=== PATIENT | male | born 1940 | race Hispanic/Latino ===

== ENCOUNTER → 2017-09-26 | Outpatient (CLI) | payer MEDICARE ==
[~2017-09-26] MED LIST: ASPI-1181 PO; CARV12.511 PO; FURO20TA4 PO; LEVE10006 PO; LISI10TA7 PO; METF10004 PO; POTA10CA44 PO; PRAV40TA3 PO; TYL3B PO
== END | disposition home or self-care (01) ==
LOC: SHCH 10:13
PROVIDERS: ATTEND Internal Medicine Cardiovascular Disease
DX: I50.42 Chronic combined systolic (congestive) and diastolic (congestive) heart failure (principal); Z95.0 Presence of cardiac pacemaker
CPT/HCPCS: 93306

== ENCOUNTER → 2017-10-04 | Outpatient (CLI) | payer MEDICARE | END | disposition home or self-care (01) | LOC: SHCH 08:51 | PROVIDERS: ATTEND Internal Medicine Cardiovascular Disease | DX: I65.22 Occlusion and stenosis of left carotid artery (principal); I73.9 Peripheral vascular disease, unspecified; I50.42 Chronic combined systolic (congestive) and diastolic (congestive) heart failure | CPT/HCPCS: 93925; 93978 ==

== ENCOUNTER 2018-07-10 07:42 | Emergency (ER) | payer MEDICARE ==
[~2018-07-10 07:42] MED LIST changes: +METF-446 PO; -METF10004 PO
[2018-07-10 08:14] LABS: BASOPHILS % (AUTO) 1.7 % (0.0-5.0); EOSINOPHILS % (AUTO) 3.1 % (0.0-8.0); HEMATOCRIT 36.7 % (42-54); MEAN CORPUSCULAR HEMOGLOBIN 33.1 pg (27.0-33.0); MEAN CORPUSCULAR HGB CONC 34.4 g/dL (32.0-36.0); MEAN CORPUSCULAR VOLUME 96.1 fL (79-99); MONOCYTES % (AUTO) 8.5 % (3.0-13.0); NEUTROPHILS % (AUTO) 64.7 % (40.0-77.0); PLATELET COUNT (AUTO) 186 K/uL (130-400); RED BLOOD CELL COUNT(AUTO) 3.82 MIL/uL (4.50-6.20); RED CELL DISTRIBUTION WIDTH 13.9 % (11.0-15.5); WHITE BLOOD COUNT (AUTO) 6.6 K/uL (4.8-10.8)
[2018-07-10 08:22] LABS: CREATININE 1.3 mg/dL (0.5-1.5); POTASSIUM 4.1 mmol/L (3.5-5.1)
[2018-07-10] MEDS ORDERED: FUROSEMIDE 10 MG/ML 4ML VIAL ONE (08:27)
[2018-07-10 08:28] LABS: ALBUMIN 3.8 g/dL (3.5-5.0); BILIRUBIN,TOTAL 0.7 mg/dL (0.2-1.0); TOTAL PROTEIN, SERUM 7.6 g/dL (6.0-8.3)
[2018-07-10] MEDS ORDERED: IOHEXOL-350 75 ML VIAL IV ONE (09:11)
== END 2018-07-10 10:25 | disposition home or self-care (01) ==
LOC: EDH 07:42
DX: I11.0 Hypertensive heart disease with heart failure (principal); I50.21 Acute systolic (congestive) heart failure; E11.9 Type 2 diabetes mellitus without complications; E78.5 Hyperlipidemia, unspecified; Z98.890 Other specified postprocedural states; Z95.0 Presence of cardiac pacemaker; Z87.891 Personal history of nicotine dependence
CPT/HCPCS: 36415; 71045; 71275; 80053; 83880; 84484; 85025; 85378; 93005; 96374; 99285; J1940; Q9967

== ENCOUNTER → 2018-07-23 | Outpatient (CLI) | payer MEDICARE | END | disposition home or self-care (01) | LOC: SHCH 07:54 | PROVIDERS: ATTEND Internal Medicine Cardiovascular Disease | DX: I70.0 Atherosclerosis of aorta (principal); I71.4 Abdominal aortic aneurysm, without rupture | CPT/HCPCS: 93925; 93978 ==

== ENCOUNTER → 2019-04-04 | Outpatient (CLI) | payer MEDICARE | END | disposition home or self-care (01) | LOC: SHCH 11:24 | PROVIDERS: ATTEND Internal Medicine Cardiovascular Disease | DX: I73.9 Peripheral vascular disease, unspecified (principal) | CPT/HCPCS: 93925 ==

== ENCOUNTER → 2019-05-20 | Outpatient (CLI) | payer MEDICARE | END | disposition home or self-care (01) | LOC: SHCH 07:43 | PROVIDERS: ATTEND Internal Medicine Cardiovascular Disease | DX: I70.0 Atherosclerosis of aorta (principal); I73.9 Peripheral vascular disease, unspecified | CPT/HCPCS: 93978 ==

== ENCOUNTER 2019-06-11 07:20 | Inpatient (IN) | payer MEDICARE ==
[~2019-06-11] VITALS: Ht 157.5 cm; Wt 68.7 kg
[2019-06-11] MEDS ORDERED: ASPIRIN 325 MG TABLET ONE (08:02)
[2019-06-11] MEDS ORDERED: NITROGLYCERIN 1GM/1 INCH PACKET TD ONE (08:02)
[2019-06-11 08:03] LABS: BASOPHILS % (AUTO) 0.8 % (0.0-5.0); EOSINOPHILS % (AUTO) 2.5 % (0.0-8.0); HEMATOCRIT 38.7 % (42-54); LYMPHOCYTES % (AUTO) 11.9 % (21.0-51.0); MEAN CORPUSCULAR HEMOGLOBIN 33.9 pg (27.0-33.0); MEAN CORPUSCULAR HGB CONC 33.8 g/dL (32.0-36.0); MEAN CORPUSCULAR VOLUME 100.4 fL (79-99); MONOCYTES % (AUTO) 9.4 % (3.0-13.0); NEUTROPHILS % (AUTO) 75.4 % (40.0-77.0); PLATELET COUNT (AUTO) 185 K/uL (130-400); RED BLOOD CELL COUNT(AUTO) 3.86 MIL/uL (4.50-6.20); RED CELL DISTRIBUTION WIDTH 14.2 % (11.0-15.5); WHITE BLOOD COUNT (AUTO) 7.7 K/uL (4.8-10.8)
[2019-06-11 08:11] LABS: CREATININE 1.3 mg/dL (0.5-1.5); POTASSIUM 3.6 mmol/L (3.5-5.1)
[2019-06-11 08:13] LABS: INR 1.15 (0.85-1.15); PARTIAL THROMBOPLASTIN TIME 29.7 SEC (26.3-35.5)
[2019-06-11 08:15] LABS: ALBUMIN 3.5 g/dL (3.5-5.0); TOTAL PROTEIN, SERUM 7.5 g/dL (6.0-8.3)
[2019-06-11 08:50] LABS: B-TYPE NATRIURETIC PEPTIDE 333 pg/mL (0-100)
[2019-06-11] MEDS ORDERED: FUROSEMIDE 10 MG/ML 2ML VIAL ONE (09:33)
[2019-06-11 09:54] LABS: APPEARANCE,URINE Clear (CLEAR); BILIRUBIN,URINE Negative (NEGATIVE); COLOR,URINE Dark Yellow (YELLOW); GLUCOSE, URINE (UA) Negative (NEGATIVE); KETONES,URINE Negative (NEGATIVE); LEUKOCYTE ESTERASE ,URINE Small (NEGATIVE); NITRATE,URINE Negative (NEGATIVE); OCCULT BLOOD,URINE Negative (NEGATIVE); PH,URINE 6.5 (5.0-8.0); PROTEIN,URINE Trace mg/dL (NEGATIVE)
[2019-06-11] MEDS ORDERED: HYDRALAZINE HCL 20 MG/ML VIAL IV PRN (10:30)
[2019-06-11] MEDS ORDERED: MORPHINE SULFATE 2 MG/ML 1ML SYG IV PRN (10:30)
[2019-06-11] MEDS ORDERED: ACETAMINOPHEN 325 MG TAB PO PRN ×2 (10:30)
[2019-06-11] MEDS: NITROGLYCERIN 1GM/1 INCH PACKET TD SCH ×2 (10:30→18:30)
[2019-06-11] MEDS ORDERED: ONDANSETRON HCL 4 MG/2 ML VIAL IV PRN (10:30)
[2019-06-11 10:33] LABS: BACTERIA,URINE Rare /HPF (None Seen); RBC,URINE None Seen /HPF (0-1)
[2019-06-11 11:11] LABS: HEMOGLOBIN A1C 5.9 % (4.0-6.0)
[2019-06-11 11:26] LABS: CHOLESTEROL 113 mg/dL (<200); HDL CHOLESTEROL 83 mg/dL (29-71); LDL DIRECT 72 mg/dL (0-99); TRIGLYCERIDES 31 mg/dL (30-200)
--- NOTE | 2019-06-11 11:35 | NUR ---
DCP: HOME Sw met with pt who states daughter Salazar Brandon [phone] lives with him and is his provider 3hrs daily. Pt states he needs no DME or Hh services. PCP is Sha Edmonds and Jake is pharm. Pt denies dc needs. Plan is home with daughter Addendum: 06/11/19 at 1137 by ANJELICA COKER SS Amended: Links added.
[2019-06-11 11:44] LABS: CREATINE KINASE, TOTAL 23 U/L (21-232); MYOGLOBIN 55 ng/mL (10-92); TROPONIN I < 0.04 ng/mL (0.00-0.06)
[2019-06-11] MEDS: FUROSEMIDE 10 MG/ML 2ML VIAL IV SCH ×2 (14:00→22:11)
[2019-06-11] MEDS ORDERED: FUROSEMIDE 10 MG/ML 4ML VIAL ONE (16:36)
[2019-06-11] MEDS ORDERED: IRON FERROUS PO (16:43)
[2019-06-11] MEDS ORDERED: FOLI0.8T2 PO (16:43)
[2019-06-11] MEDS ORDERED: LINA5TAB PO (16:43)
[2019-06-11 19:21] LABS: CREATINE KINASE, TOTAL 21 U/L (21-232); MYOGLOBIN 51 ng/mL (10-92); TROPONIN I < 0.04 ng/mL (0.00-0.06)
[2019-06-11 20:05] VITALS: BP 154/75
--- NOTE | 2019-06-11 20:31 | NUR ---
ADMISSION ASSESSMENT PATIENT WAS TRANSFERRED FROM ER BY STRETCHER. PATIENT IS ALERT AND ORIENTED X4. PATIENT TRANSFERRED TO BED WITH NO ISSUES. NO COMPLAINTS OF CHEST PAIN AT THIS TIME. NO SHORTNESS OF BREATH. NO SIGNS OF DISTRESS. FAMILY IS AT BEDSIDE WITH PATIENT. CALL LIGHT AND BEDSIDE TABLE WITHIN REACH. NO COMPLAINTS, QUESTIONS, OR NEEDS AT THIS TIME. PATIENT REINFORCED TO CALL FOR ANY NEEDS.
[2019-06-11] MEDS: LEVETIRACETAM 500 MG TABLET PO SCH (20:59)
[2019-06-11] MEDS: CARVEDILOL 12.5 MG TABLET PO SCH (20:59)
[2019-06-11] MEDS: FAMOTIDINE/PF 20 MG/2 ML VIAL IV SCH (20:59)
[2019-06-11] MEDS: ATORVASTATIN CALCIUM 20 MG TABLET PO SCH (20:59)
[2019-06-11] MEDS ORDERED: METOPROLOL TARTRATE 25 MG TAB PO SCH (21:00)
[2019-06-11] MEDS ORDERED: FAMOTIDINE/PF 20 MG/2 ML VIAL IV SCH (21:00)
[2019-06-11 23:41] VITALS: BP 127/67
--- NOTE | 2019-06-12 02:00 | NUR ---
FALL LOUD NOISE WAS HEARD FROM PATIENTS ROOM. PATIENT WAS FOUND ON FLOOR WITH FAMILY MEMBER ATTEMPTING TO HELP UP. PATIENT STATES HE WAS ATTEMPTING TO STAND AT THE SIDE OF THE BED TO USE THE URINAL. PATIENT STATES HE GOT UP TOO FAST DUE TO URGENCY TO VOID SINCE ON DIURETICS AND GOT DIZZY. ATTEMPTED TO HOLD ON TO BEDSIDE TABLE AND IT SLID CAUSING PATIENT TO LOOSE BALANCE AND FALL. PATIENT STATES HIS LOWER BACK IS SORE FROM WHERE HE HIS IT AGAINST THE BED AND RIGHT FOOT THAT HE HIT WHEN TRYING TO REGAIN HIS BALANCE. PATIENTS VITAL SIGNS ARE STABLE. LOC A/O X3. NO NEURO CHANGES. NO COMPLAINTS OF PAIN AT THIS TIME. PATIENT STATES HE IS SORE BUT NO PAIN AT REST. PATIENT WAS EVALUATED BY [employer]IST WILL HAVE XRAYS ORDERED. WILL CONTINUE TO MONITOR. PATIENTS CALL LIGHT WITHIN REACH BEDSIDE TABLE WITHIN REACH. BED ALARM ON. PATIENT REINFORCED TO CALL FOR ANY ASSISTANCE TO USE THE BATHROOM OR STAND. ALTHOUGH PATIENT IS FULLY AMBULATORY EXPLAINED TO PATIENT HOW DIURETIC CAN CAUSE DIZZINESS AT PUTS HIM AT RISK FOR FALLS. PATIENTS DOOR IS OPEN. PATIENT ROOM IS FRONT OF NURSES STATION WILL CONTINUE TO MONITOR. PRN MEDS AVAILABLE FOR PAIN BUT PATIENT REFUSES AT THIS TIME.
[2019-06-12] MEDS: NITROGLYCERIN 1GM/1 INCH PACKET TD SCH ×3 (02:30→17:59)
[2019-06-12] MEDS ORDERED: TRAMADOL HCL 50 MG TABLET PO PRN ×2 (03:15)
[2019-06-12 03:50] LABS: CREATINE KINASE, TOTAL 43 U/L (21-232); MYOGLOBIN 92 ng/mL (10-92); TROPONIN I < 0.04 ng/mL (0.00-0.06)
--- NOTE | 2019-06-12 04:00 | NUR ---
ASSESSMENT PATIENT IS RESTING IN BED. AROUSABLE TO VOICE. NO COMPLAINTS OF PAIN AT THIS TIME. NO SIGNS OF DISTRESS. NO SHORTNESS OF BREATH. DENIES CHEST PAIN AT THIS TIME. PATIENTS CALL LIGHT WITHIN REACH. FAMILY AT BEDSIDE. REINFORCED PATIENT TO CALL FOR ANY NEEDS. BED ALARM IS ON. NO QUESTIONS, CONCERNS, OR NEEDS AT THIS TIME. URINAL AT BEDSIDE.
[2019-06-12 04:09] VITALS: BP 147/69
[2019-06-12] MEDS: FUROSEMIDE 10 MG/ML 2ML VIAL IV SCH ×3 (06:32→20:55)
[2019-06-12 07:56] VITALS: BP 124/66
[2019-06-12] MEDS: ASPIRIN 325 MG TABLET PO SCH (08:27)
[2019-06-12] MEDS: FOLIC ACID/VITAMIN B COMP W-C 1 MG CAP/TAB PO SCH (08:27)
[2019-06-12] MEDS: FERROUS SULFATE 325 MG TABLET.DR PO SCH (08:28)
[2019-06-12] MEDS: LISINOPRIL 10 MG TABLET PO SCH (08:28)
[2019-06-12] MEDS: CARVEDILOL 12.5 MG TABLET PO SCH ×2 (08:28→20:54)
[2019-06-12] MEDS: LEVETIRACETAM 500 MG TABLET PO SCH ×2 (08:28→20:54)
[2019-06-12] MEDS: FAMOTIDINE/PF 20 MG/2 ML VIAL IV SCH ×2 (08:29→20:54)
[2019-06-12] MEDS: ENOXAPARIN SODIUM 40 MG/0.4 ML SYRINGE SQ SCH (08:30)
[2019-06-12] MEDS: LINAGLIPTIN 5 MG TABLET PO SCH (08:33)
--- NOTE | 2019-06-12 10:30 | NUR ---
consultation Spoke to Amelie, from Dr Barba's office; she will let Dr Barba know of consultation as he is currently doing surgery
[2019-06-12 11:12] VITALS: BP 121/71
[2019-06-12] MEDS ORDERED: IOHEXOL-350 75 ML VIAL IV ONE (13:42)
[2019-06-12] MEDS ORDERED: POTASSIUM CHLORIDE 20MEQ/100ML 100 ML IV PRN (15:00)
[2019-06-12] MEDS ORDERED: POTASSIUM CHLORIDE 10% ELIXIR 20 MEQ/15 ML UDCUP PO PRN (15:00)
[2019-06-12] MEDS ORDERED: LIDOCAINE HCL-MPF 1% 2ML VIAL IV PRN (15:00)
[2019-06-12 16:10] VITALS: BP 101/60
[2019-06-12] MEDS: POTASSIUM CHLORIDE 20 MEQ ERTAB PO PRN (18:00)
[2019-06-12 19:19] VITALS: BP 131/50
[2019-06-12] MEDS: ATORVASTATIN CALCIUM 20 MG TABLET PO SCH (20:54)
[2019-06-12 23:35] VITALS: BP 114/69
[2019-06-13] VITALS (8 sets, daily range): BP systolic 87–132; BP diastolic 48–85
[2019-06-13] MEDS: NITROGLYCERIN 1GM/1 INCH PACKET TD SCH ×3 (02:18→17:47)
[2019-06-13 04:46] LABS: BASOPHILS % (AUTO) 1.4 % (0.0-5.0); EOSINOPHILS % (AUTO) 3.5 % (0.0-8.0); LYMPHOCYTES % (AUTO) 14.8 % (21.0-51.0); MEAN CORPUSCULAR HEMOGLOBIN 34.2 pg (27.0-33.0); MEAN CORPUSCULAR HGB CONC 34.8 g/dL (32.0-36.0); MEAN CORPUSCULAR VOLUME 98.2 fL (79-99); MONOCYTES % (AUTO) 10.1 % (3.0-13.0); NEUTROPHILS % (AUTO) 70.2 % (40.0-77.0); PLATELET COUNT (AUTO) 212 K/uL (130-400); RED BLOOD CELL COUNT(AUTO) 4.07 MIL/uL (4.50-6.20); RED CELL DISTRIBUTION WIDTH 14.1 % (11.0-15.5); WHITE BLOOD COUNT (AUTO) 8.4 K/uL (4.8-10.8)
[2019-06-13 04:57] LABS: ALBUMIN 3.5 g/dL (3.5-5.0); CREATININE 1.6 mg/dL (0.5-1.5); POTASSIUM 3.3 mmol/L (3.5-5.1)
[2019-06-13 05:18] LABS: BILIRUBIN,TOTAL 2.1 mg/dL (0.2-1.0); TOTAL PROTEIN, SERUM 7.9 g/dL (6.0-8.3)
[2019-06-13] MEDS: POTASSIUM CHLORIDE 20 MEQ ERTAB PO PRN ×3 (06:03→14:45)
[2019-06-13] MEDS: FAMOTIDINE/PF 20 MG/2 ML VIAL IV SCH ×2 (08:33→20:36)
[2019-06-13] MEDS: ASPIRIN 325 MG TABLET PO SCH (08:34)
[2019-06-13] MEDS: FOLIC ACID/VITAMIN B COMP W-C 1 MG CAP/TAB PO SCH (08:34)
[2019-06-13] MEDS: LINAGLIPTIN 5 MG TABLET PO SCH (08:34)
[2019-06-13] MEDS: LEVETIRACETAM 500 MG TABLET PO SCH ×2 (08:34→20:37)
[2019-06-13] MEDS: LISINOPRIL 10 MG TABLET PO SCH (08:34)
[2019-06-13] MEDS: ENOXAPARIN SODIUM 40 MG/0.4 ML SYRINGE SQ SCH (08:35)
[2019-06-13] MEDS: CARVEDILOL 12.5 MG TABLET PO SCH ×2 (08:35→20:38)
[2019-06-13] MEDS: FERROUS SULFATE 325 MG TABLET.DR PO SCH (08:35)
--- NOTE | 2019-06-13 16:00 | NUR ---
PATIENT MOVED PATIENT MOVED TO ROOM 221 AT THIS TIME AND REPORT GIVEN TO TOMER FELTON; FAMILY AT BEDSIDE
--- NOTE | 2019-06-13 16:00 | NUR ---
TRANSFER FROM ROOM 216 PT AMBULATING FROM BED TO WHEELCHAIR AND TRANSFERRED TO ROOM 221 AND AMBULATING FROM WHEELCHAIR TO BED, GAIT SLOW BUT STEADY WITH STAND BY ASSIST, PT DENIES PAIN, DIZZINESS OR LIGHTHEADEDNESS. PT RESTING COMFORTABLY, CALL LIGHT WITHIN REACH, FAMILY AT BEDSIDE.
[2019-06-13] MEDS ORDERED: RIVA20TA PO (16:25)
[2019-06-13] MEDS: ATORVASTATIN CALCIUM 20 MG TABLET PO SCH (20:36)
[2019-06-14] MEDS: NITROGLYCERIN 1GM/1 INCH PACKET TD SCH ×2 (02:57→10:39)
[2019-06-14 03:00] VITALS: BP 102/47
[2019-06-14 03:47] LABS: BASOPHILS % (AUTO) 1.4 % (0.0-5.0); EOSINOPHILS % (AUTO) 4.8 % (0.0-8.0); HEMATOCRIT 37.6 % (42-54); LYMPHOCYTES % (AUTO) 18.4 % (21.0-51.0); MEAN CORPUSCULAR HEMOGLOBIN 34.4 pg (27.0-33.0); MEAN CORPUSCULAR HGB CONC 34.7 g/dL (32.0-36.0); MEAN CORPUSCULAR VOLUME 99.1 fL (79-99); MONOCYTES % (AUTO) 10.8 % (3.0-13.0); NEUTROPHILS % (AUTO) 64.6 % (40.0-77.0); PLATELET COUNT (AUTO) 186 K/uL (130-400); RED BLOOD CELL COUNT(AUTO) 3.79 MIL/uL (4.50-6.20); RED CELL DISTRIBUTION WIDTH 14.1 % (11.0-15.5); WHITE BLOOD COUNT (AUTO) 7.3 K/uL (4.8-10.8)
[2019-06-14 03:58] LABS: ALBUMIN 3.3 g/dL (3.5-5.0); BILIRUBIN,TOTAL 1.5 mg/dL (0.2-1.0); CREATININE 1.8 mg/dL (0.5-1.5); POTASSIUM 3.5 mmol/L (3.5-5.1); TOTAL PROTEIN, SERUM 7.4 g/dL (6.0-8.3)
[2019-06-14 07:00] VITALS: BP 118/64
[2019-06-14] MEDS: FOLIC ACID/VITAMIN B COMP W-C 1 MG CAP/TAB PO SCH (09:39)
[2019-06-14] MEDS: LINAGLIPTIN 5 MG TABLET PO SCH (09:39)
[2019-06-14] MEDS: ASPIRIN 325 MG TABLET PO SCH (09:39)
[2019-06-14] MEDS: FAMOTIDINE/PF 20 MG/2 ML VIAL IV SCH (09:39)
[2019-06-14] MEDS: LISINOPRIL 10 MG TABLET PO SCH (09:40)
[2019-06-14] MEDS: FERROUS SULFATE 325 MG TABLET.DR PO SCH (09:40)
[2019-06-14] MEDS: LEVETIRACETAM 500 MG TABLET PO SCH (09:40)
[2019-06-14] MEDS: ENOXAPARIN SODIUM 40 MG/0.4 ML SYRINGE SQ SCH (09:41)
[2019-06-14] MEDS: CARVEDILOL 12.5 MG TABLET PO SCH (09:41)
[2019-06-14 11:00] VITALS: BP 109/61
== END 2019-06-14 15:00 | disposition home or self-care (01) | DRG 291 ==
LOC: EDH 07:20 → OBSVTOIN 10:25 → EDHIP 10:25 → 2CH 19:57 → 2DH 06-13 15:48
PROVIDERS: ADMIT Internal Medicine; ATTEND Internal Medicine
DX: I11.0 Hypertensive heart disease with heart failure (principal); J96.01 Acute respiratory failure with hypoxia; I50.21 Acute systolic (congestive) heart failure; F10.239 Alcohol dependence with withdrawal, unspecified; M48.54XA Collapsed vertebra, not elsewhere classified, thoracic region, initial encounter for fracture; E11.9 Type 2 diabetes mellitus without complications; E78.5 Hyperlipidemia, unspecified; I25.10 Atherosclerotic heart disease of native coronary artery without angina pectoris; G40.909 Epilepsy, unspecified, not intractable, without status epilepticus; I34.0 Nonrheumatic mitral (valve) insufficiency; G89.29 Other chronic pain; E87.6 Hypokalemia; Z82.49 Family history of ischemic heart disease and other diseases of the circulatory system; Z95.1 Presence of aortocoronary bypass graft; Z79.899 Other long term (current) drug therapy; Z79.82 Long term (current) use of aspirin; Z95.0 Presence of cardiac pacemaker; W18.39XA Other fall on same level, initial encounter; Y93.89 Activity, other specified; Y92.238 Other place in hospital as the place of occurrence of the external cause; Y99.8 Other external cause status
CPT/HCPCS: 36415; 71045; 72100; 72133; 73620; 80053; 80061; 81001; 82550; 83036; 83874; 83880; 84156; 84166; 84484; 85025; 85610; 85730; 86325; 86334; 93005; 93306; 99291; G0378; J1650; J1940; J3490; Q9967

== ENCOUNTER 2019-11-05 11:59 | Emergency (ER) | payer MEDICARE ==
[~2019-11-05 11:59] MED LIST changes: +FOLI0.8T2 PO; +IRON FERROUS PO; +LINA5TAB PO; -METF-446 PO; -POTA10CA44 PO; +RIVA20TA PO
[2019-11-05] MEDS ORDERED: OXYMETAZOLINE HCL SPRAY 15 ML BOTTLE ONE (12:10)
== END 2019-11-05 13:00 | disposition home or self-care (01) ==
LOC: EDH 11:59
DX: R04.0 Epistaxis (principal); I25.10 Atherosclerotic heart disease of native coronary artery without angina pectoris; E11.9 Type 2 diabetes mellitus without complications; E78.5 Hyperlipidemia, unspecified; I10 Essential (primary) hypertension; Z87.891 Personal history of nicotine dependence
CPT/HCPCS: 30901; 99281

== ENCOUNTER 2020-02-15 18:49 | Emergency (ER) | payer MEDICARE ==
[~2020-02-15 18:49] MED LIST changes: -ASPI-1181 PO; +ASPI-1443 PO
[2020-02-15 19:16] LABS: BASOPHILS % (AUTO) 0.6 % (0.0-5.0); EOSINOPHILS % (AUTO) 2.5 % (0.0-8.0); HEMATOCRIT 38.2 % (42-54); LYMPHOCYTES % (AUTO) 14.6 % (21.0-51.0); MEAN CORPUSCULAR HEMOGLOBIN 31.8 pg (27.0-33.0); MEAN CORPUSCULAR HGB CONC 32.7 g/dL (32.0-36.0); MEAN CORPUSCULAR VOLUME 97.2 fL (79-99); PLATELET COUNT (AUTO) 164 K/uL (130-400); RED BLOOD CELL COUNT(AUTO) 3.93 MIL/uL (4.50-6.20); RED CELL DISTRIBUTION WIDTH 13.4 % (11.0-15.5); WHITE BLOOD COUNT (AUTO) 6.5 K/uL (4.8-10.8)
[2020-02-15] MEDS ORDERED: ASPIRIN 325 MG TABLET ONE (19:18)
[2020-02-15 19:25] LABS: CREATININE 1.6 mg/dL (0.5-1.5); POTASSIUM 4.6 mmol/L (3.5-5.1)
[2020-02-15 19:29] LABS: ALBUMIN 3.7 g/dL (3.5-5.0); BILIRUBIN,TOTAL 1.4 mg/dL (0.2-1.0); TOTAL PROTEIN, SERUM 7.8 g/dL (6.0-8.3)
[2020-02-15 19:41] LABS: B-TYPE NATRIURETIC PEPTIDE 276 pg/mL (0-100)
[2020-02-15 19:53] LABS: INR 1.14 (0.85-1.15); PARTIAL THROMBOPLASTIN TIME 28.2 SEC (26.3-35.5); PROTHROMBIN TIME 12.2 SEC (9.6-11.6)
[2020-02-15] MEDS ORDERED: IOHEXOL-350 75 ML VIAL IV ONE (21:21)
== END 2020-02-15 23:18 | disposition home or self-care (01) ==
LOC: EDH 18:49
DX: R07.89 Other chest pain (principal); R06.02 Shortness of breath; I11.0 Hypertensive heart disease with heart failure; I50.9 Heart failure, unspecified; I25.10 Atherosclerotic heart disease of native coronary artery without angina pectoris; E11.9 Type 2 diabetes mellitus without complications; Z95.0 Presence of cardiac pacemaker; E78.5 Hyperlipidemia, unspecified; Z86.718 Personal history of other venous thrombosis and embolism
CPT/HCPCS: 36415; 71045; 71275; 80053; 82550; 83880; 84484 ×2; 85025; 85610; 85730; 93005 ×2; 99285; Q9967

== ENCOUNTER → 2020-10-01 | Outpatient (CLI) | payer MEDICARE | END | disposition home or self-care (01) | LOC: SHCH 08:30 | PROVIDERS: ATTEND Internal Medicine Cardiovascular Disease | DX: I20.9 Angina pectoris, unspecified (principal); R07.9 Chest pain, unspecified; R06.09 Other forms of dyspnea | CPT/HCPCS: 93306; 93356 ==

== ENCOUNTER 2020-12-01 12:14 | Inpatient (IN) | payer MEDICARE ==
[~2020-12-01] VITALS: Ht 160 cm; Wt 71.8 kg
[~2020-12-01 12:14] MED LIST changes: +LISI10TA24 PO; -LISI10TA7 PO
[2020-12-01 12:47] LABS: EOSINOPHILS % (AUTO) 2.5 % (0.0-8.0); HEMATOCRIT 38.8 % (42-54); LYMPHOCYTES % (AUTO) 12.9 % (21.0-51.0); MEAN CORPUSCULAR HEMOGLOBIN 31.5 pg (27.0-33.0); MEAN CORPUSCULAR HGB CONC 33.5 g/dL (32.0-36.0); MEAN CORPUSCULAR VOLUME 93.9 fL (79-99); MONOCYTES % (AUTO) 8.4 % (3.0-13.0); NEUTROPHILS % (AUTO) 74.8 % (40.0-77.0); PLATELET COUNT (AUTO) 181 K/uL (130-400); RED BLOOD CELL COUNT(AUTO) 4.13 MIL/uL (4.50-6.20); RED CELL DISTRIBUTION WIDTH 14.1 % (11.0-15.5); WHITE BLOOD COUNT (AUTO) 7.3 K/uL (4.8-10.8)
[2020-12-01 13:05] LABS: ALBUMIN 3.7 g/dL (3.5-5.0); BILIRUBIN,TOTAL 1.1 mg/dL (0.2-1.0); CREATININE 1.3 mg/dL (0.5-1.5); POTASSIUM 4.1 mmol/L (3.5-5.1)
[2020-12-01 14:46] LABS: APPEARANCE,URINE Clear (CLEAR); BILIRUBIN,URINE Negative (NEGATIVE); COLOR,URINE Yellow (YELLOW); GLUCOSE, URINE (UA) TRACE mg/dL (NEGATIVE); KETONES,URINE Negative (NEGATIVE); LEUKOCYTE ESTERASE ,URINE Small (NEGATIVE); NITRATE,URINE Negative (NEGATIVE); OCCULT BLOOD,URINE Negative (NEGATIVE); PROTEIN,URINE Trace mg/dL (NEGATIVE)
[2020-12-01 15:08] LABS: MUCUS,URINE Rare LPF (None Seen)
[2020-12-01 15:10] LABS: BACTERIA,URINE Rare /HPF (None Seen); RBC,URINE 0-1 /HPF (0-1)
[2020-12-01] MEDS ORDERED: AZITHROMYCIN 250 MG TABLET PO ONE (16:30)
[2020-12-01] MEDS ORDERED: CEFTRIAXONE 1G VIAL ONE (16:30)
[2020-12-01] MEDS ORDERED: 0.9%NACL 50ML 50 ML IV ONE (16:32)
[2020-12-01] MEDS: AZITHROMYCIN 500MG+NS 250ML 250 ML IV SCH (17:00)
[2020-12-01] MEDS ORDERED: ACETAMINOPHEN 325 MG TAB PO PRN ×2 (17:00)
[2020-12-01] MEDS ORDERED: ONDANSETRON 4MG INJ IV PRN (17:00)
[2020-12-01] MEDS ORDERED: LACTULOSE 20 GM/30 ML UDCUP PO PRN (17:00)
[2020-12-01] MEDS: CEFTRIAXONE 1G VIAL IV SCH (17:00)
[2020-12-01 17:16] LABS: INR 1.08 (0.85-1.15); PROTHROMBIN TIME 11.7 SEC (9.6-11.6)
[2020-12-01 17:17] LABS: PARTIAL THROMBOPLASTIN TIME 26.8 SEC (26.3-35.5)
[2020-12-01] MEDS ORDERED: IPRATROPIUM/ALBUTEROL SULFATE 3 ML SOLUTION IH ONE (18:17)
[2020-12-01] MEDS: IPRATROPIUM/ALBUTEROL SULFATE 3 ML SOLUTION IH SCH (18:21)
[2020-12-02] MEDS ORDERED: IPRATROPIUM/ALBUTEROL SULFATE 3 ML SOLUTION IH ONE ×3 (00:46→11:01)
[2020-12-02] MEDS: IPRATROPIUM/ALBUTEROL SULFATE 3 ML SOLUTION IH SCH ×4 (00:51→18:33)
[2020-12-02 05:01] LABS: BASOPHILS % (AUTO) 0.8 % (0.0-5.0); EOSINOPHILS % (AUTO) 0.5 % (0.0-8.0); HEMATOCRIT 40.2 % (42-54); LYMPHOCYTES % (AUTO) 9.4 % (21.0-51.0); MEAN CORPUSCULAR HEMOGLOBIN 31.2 pg (27.0-33.0); MEAN CORPUSCULAR HGB CONC 33.3 g/dL (32.0-36.0); MEAN CORPUSCULAR VOLUME 93.7 fL (79-99); MONOCYTES % (AUTO) 9.3 % (3.0-13.0); NEUTROPHILS % (AUTO) 79.6 % (40.0-77.0); PLATELET COUNT (AUTO) 190 K/uL (130-400); RED BLOOD CELL COUNT(AUTO) 4.29 MIL/uL (4.50-6.20); RED CELL DISTRIBUTION WIDTH 14.3 % (11.0-15.5); WHITE BLOOD COUNT (AUTO) 11.1 K/uL (4.8-10.8)
[2020-12-02 05:15] LABS: CREATININE 1.5 mg/dL (0.5-1.5); POTASSIUM 4.6 mmol/L (3.5-5.1)
[2020-12-02] MEDS ORDERED: BENZONATATE 100 MG CAPSULE PO ONE ×2 (06:11→17:27)
[2020-12-02] MEDS ORDERED: ACETAMINOPHEN 325 MG TAB ONE (06:22)
[2020-12-02] MEDS ORDERED: LEVETIRACETAM 500 MG TABLET PO ONE (10:34)
[2020-12-02] MEDS: LEVETIRACETAM 500 MG TABLET PO SCH (10:45)
[2020-12-02] MEDS ORDERED: CARVEDILOL 12.5 MG TABLET PO ONE (13:40)
[2020-12-02] MEDS ORDERED: FUROSEMIDE 20MG VIAL ONE (13:41)
[2020-12-02] MEDS: CARVEDILOL 12.5 MG TABLET PO SCH (14:00)
[2020-12-02] MEDS ORDERED: AZITHROMYCIN 500MG+NS 250ML 250 ML IV ONE (16:53)
[2020-12-02] MEDS ORDERED: CEFTRIAXONE 1G VIAL ONE (16:53)
[2020-12-02] MEDS: CEFTRIAXONE 1G VIAL IV SCH (17:00)
[2020-12-02] MEDS: AZITHROMYCIN 500MG+NS 250ML 250 ML IV SCH (17:00)
[2020-12-02 20:11] VITALS: BP 131/70
[2020-12-02] MEDS: INSULIN HUMULIN R 100 UNIT/ML 3ML SQ SCH (21:00)
[2020-12-02] MEDS: FAMOTIDINE 20MG TAB PO SCH (21:36)
[2020-12-02] MEDS ORDERED: FERR325T22 PO (22:12)
[2020-12-03] VITALS (7 sets, daily range): BP systolic 107–146; BP diastolic 49–81
[2020-12-03] MEDS: IPRATROPIUM/ALBUTEROL SULFATE 3 ML SOLUTION IH SCH ×4 (00:11→18:44)
[2020-12-03] MEDS: FUROSEMIDE 20MG VIAL IV SCH ×2 (00:40→12:16)
[2020-12-03 05:22] LABS: BASOPHILS % (AUTO) 0.9 % (0.0-5.0); EOSINOPHILS % (AUTO) 1.4 % (0.0-8.0); HEMATOCRIT 38.4 % (42-54); LYMPHOCYTES % (AUTO) 13.5 % (21.0-51.0); MEAN CORPUSCULAR HEMOGLOBIN 32.2 pg (27.0-33.0); MEAN CORPUSCULAR HGB CONC 34.4 g/dL (32.0-36.0); MEAN CORPUSCULAR VOLUME 93.7 fL (79-99); MONOCYTES % (AUTO) 11.7 % (3.0-13.0); NEUTROPHILS % (AUTO) 72.1 % (40.0-77.0); PLATELET COUNT (AUTO) 178 K/uL (130-400); RED CELL DISTRIBUTION WIDTH 14.3 % (11.0-15.5); WHITE BLOOD COUNT (AUTO) 9.9 K/uL (4.8-10.8)
[2020-12-03 05:35] LABS: CREATININE 1.9 mg/dL (0.5-1.5); MAGNESIUM 2.2 mg/dL (1.80-2.40); POTASSIUM 3.8 mmol/L (3.5-5.1)
[2020-12-03] MEDS: INSULIN HUMULIN R 100 UNIT/ML 3ML SQ SCH ×4 (06:35→20:13)
[2020-12-03] MEDS: LEVETIRACETAM 500 MG TABLET PO SCH ×3 (09:53→20:12)
[2020-12-03] MEDS: Vitamin B Complex/Vit C/Folic Acid PO SCH (10:00)
[2020-12-03] MEDS: FERROUS SULFATE 325 MG TABLET.DR PO SCH (10:00)
[2020-12-03] MEDS: RIVAROXABAN 20 MG TABLET PO SCH (10:00)
[2020-12-03] MEDS: CARVEDILOL 12.5 MG TABLET PO SCH ×3 (10:02→20:12)
[2020-12-03] MEDS: CEFTRIAXONE 1G VIAL IV SCH (17:10)
[2020-12-03] MEDS: AZITHROMYCIN 500MG+NS 250ML 250 ML IV SCH (17:10)
[2020-12-03] MEDS: FAMOTIDINE 20MG TAB PO SCH (20:11)
[2020-12-03] MEDS ORDERED: ATORVASTATIN 10 MG TABLET PO SCH (21:00)
[2020-12-04] MEDS: FUROSEMIDE 20MG VIAL IV SCH ×2 (00:10→12:13)
[2020-12-04] MEDS: IPRATROPIUM/ALBUTEROL SULFATE 3 ML SOLUTION IH SCH ×3 (00:27→11:32)
[2020-12-04 03:00] VITALS: BP 97/54
[2020-12-04 04:44] LABS: HEMATOCRIT 39.3 % (42-54); LYMPHOCYTES % (AUTO) 14.8 % (21.0-51.0); MEAN CORPUSCULAR HEMOGLOBIN 31.3 pg (27.0-33.0); MEAN CORPUSCULAR HGB CONC 33.3 g/dL (32.0-36.0); MEAN CORPUSCULAR VOLUME 93.8 fL (79-99); MONOCYTES % (AUTO) 11.4 % (3.0-13.0); NEUTROPHILS % (AUTO) 69.4 % (40.0-77.0); PLATELET COUNT (AUTO) 180 K/uL (130-400); RED BLOOD CELL COUNT(AUTO) 4.19 MIL/uL (4.50-6.20); WHITE BLOOD COUNT (AUTO) 8.2 K/uL (4.8-10.8)
[2020-12-04 04:59] LABS: CREATININE 1.8 mg/dL (0.5-1.5); POTASSIUM 3.5 mmol/L (3.5-5.1)
[2020-12-04] MEDS: INSULIN HUMULIN R 100 UNIT/ML 3ML SQ SCH ×3 (05:48→15:52)
[2020-12-04] MEDS: CARVEDILOL 12.5 MG TABLET PO SCH ×2 (07:46→08:39)
[2020-12-04] MEDS: LEVETIRACETAM 500 MG TABLET PO SCH ×2 (07:46→08:39)
[2020-12-04 07:48] VITALS: BP 143/68
[2020-12-04] MEDS: Vitamin B Complex/Vit C/Folic Acid PO SCH (08:39)
[2020-12-04] MEDS: RIVAROXABAN 20 MG TABLET PO SCH (08:39)
[2020-12-04] MEDS: FERROUS SULFATE 325 MG TABLET.DR PO SCH (08:39)
[2020-12-04] MEDS ORDERED: AZITHROMYCIN 500MG+NS 250ML 250 ML IV SCH (09:00)
[2020-12-04] MEDS ORDERED: CEFTRIAXONE 1G VIAL IV SCH (09:00)
[2020-12-04 11:44] VITALS: BP 121/64
[2020-12-04] MEDS ORDERED: AZIT250T9 PO (13:44)
[2020-12-04] MEDS ORDERED: CEFD300C3 PO (13:44)
[2020-12-04] MEDS ORDERED: AZIT500T4 PO (13:44)
[2020-12-04] MEDS ORDERED: CEFDINIR 250MG/5ML 60ML BOTTLE PO SCH (13:45)
[2020-12-04] MEDS ORDERED: AZITHROMYCIN 250 MG TABLET PO SCH (13:45)
[2020-12-04] MEDS ORDERED: COMPOUND PO REF 1 EA BTL MISC PRN (15:00)
== END 2020-12-04 16:20 | disposition home or self-care (01) | DRG 291 ==
LOC: EDH 12:14 → EDHIP 16:48 → 4DH 12-02 19:40
PROVIDERS: ADMIT Family Medicine; ATTEND Family Medicine
DX: I11.0 Hypertensive heart disease with heart failure (principal); J18.9 Pneumonia, unspecified organism; I50.41 Acute combined systolic (congestive) and diastolic (congestive) heart failure; E11.9 Type 2 diabetes mellitus without complications; E78.5 Hyperlipidemia, unspecified; G40.909 Epilepsy, unspecified, not intractable, without status epilepticus; I25.10 Atherosclerotic heart disease of native coronary artery without angina pectoris; Z82.49 Family history of ischemic heart disease and other diseases of the circulatory system; Z83.3 Family history of diabetes mellitus; Z86.718 Personal history of other venous thrombosis and embolism; Z95.0 Presence of cardiac pacemaker; Z95.1 Presence of aortocoronary bypass graft; Z20.822 Contact with and (suspected) exposure to COVID-19
CPT/HCPCS: 36415; 71045; 80048; 80053; 81001; 82550; 82948; 83605; 83690; 83735; 83880; 84145; 84484; 85025; 85378; 85610; 85730; 86738; 87040; 87426; 87804; 87880; 93005; 94640; 94664; G0378; J0456; J0696; J1815; J1940; U0003

== ENCOUNTER 2022-02-17 17:00 | Emergency (ER) | payer MEDICARE ==
[~2022-02-17] VITALS: Ht 160 cm; Wt 77.1 kg
[~2022-02-17 17:00] MED LIST changes: -ASPI-1443 PO; +AZIT250T9 PO; +AZIT500T4 PO; +CEFD300C3 PO; +FERR325T22 PO; -IRON FERROUS PO; -LISI10TA24 PO; -TYL3B PO
[2022-02-17 17:43] LABS: APPEARANCE,URINE CLEAR (CLEAR); BASOPHILS % (AUTO) 0.3 % (0.0-5.0); BILIRUBIN,URINE NEGATIVE (NEGATIVE); COLOR,URINE YELLOW (YELLOW); GLUCOSE, URINE (UA) NEGATIVE (NEGATIVE); HEMATOCRIT 32.6 % (42-54); KETONES,URINE NEGATIVE (NEGATIVE); LEUKOCYTE ESTERASE ,URINE NEGATIVE (NEGATIVE); LYMPHOCYTES % (AUTO) 14.1 % (21.0-51.0); MEAN CORPUSCULAR HEMOGLOBIN 31.5 pg (27.0-33.0); MEAN CORPUSCULAR HGB CONC 32.5 g/dL (32.0-36.0); MEAN CORPUSCULAR VOLUME 96.7 fL (79-99); MONOCYTES % (AUTO) 7.5 % (3.0-13.0); NEUTROPHILS % (AUTO) 73.6 % (40.0-77.0); NITRATE,URINE NEGATIVE (NEGATIVE); OCCULT BLOOD,URINE NEGATIVE (NEGATIVE); PLATELET COUNT (AUTO) 237 K/uL (130-400); PROTEIN,URINE NEGATIVE (NEGATIVE); RED BLOOD CELL COUNT(AUTO) 3.37 MIL/uL (4.50-6.20); RED CELL DISTRIBUTION WIDTH 13.7 % (11.0-15.5); UROBILINOGEN,URINE 0.2 mg/dL (0.2-1.0); WHITE BLOOD COUNT (AUTO) 5.8 K/uL (4.8-10.8)
[2022-02-17 17:53] LABS: CREATININE 1.5 mg/dL (0.5-1.5); POTASSIUM 4.1 mmol/L (3.5-5.1)
[2022-02-17 17:58] LABS: ALBUMIN 3.2 g/dL (3.5-5.0); BILIRUBIN,TOTAL 0.7 mg/dL (0.2-1.0); TOTAL PROTEIN, SERUM 7.8 g/dL (6.0-8.3)
[2022-02-17 20:37] VITALS: BP 133/70
== END 2022-02-17 20:53 | disposition home or self-care (01) ==
LOC: EDH 17:00
DX: U07.1 COVID-19 (principal); E78.00 Pure hypercholesterolemia, unspecified; I10 Essential (primary) hypertension; I25.10 Atherosclerotic heart disease of native coronary artery without angina pectoris; Z79.84 Long term (current) use of oral hypoglycemic drugs; Z79.899 Other long term (current) drug therapy
CPT/HCPCS: 36415; 80053; 81003; 85025; 87635; 87804 ×2; 99283; C9803